=== PATIENT | female | born 2000 | race Caucasian/White ===

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

== ENCOUNTER 2022-06-04 21:14 | Outpatient (CLI) | payer OTHER, SELFPAY ==
[~2022-06-04] VITALS: Ht 160 cm; Wt 106.9 kg
[~2022-06-04 21:14] MED LIST: PRENTAB53 PO
[2022-06-04 22:04] VITALS: BP 134/65
[2022-06-04 22:28] VITALS: BP 142/81
== END 2022-06-04 22:32 | disposition home or self-care (01) ==
LOC: M LDO 21:14
PROVIDERS: ATTEND Obstetrics & Gynecology
DX: O36.8130 Decreased fetal movements, third trimester, not applicable or unspecified (principal); Z3A.39 39 weeks gestation of pregnancy; O24.430 Gestational diabetes mellitus in the puerperium, diet controlled
CPT/HCPCS: 59025; 76815; G0463

== ENCOUNTER 2022-06-13 03:29 | Inpatient (IN) | payer OTHER ==
[~2022-06-13] VITALS: Ht 160 cm; Wt 107.1 kg
[2022-06-13] VITALS (30 sets, daily range): BP systolic 120–202; BP diastolic 56–98
[2022-06-13] MEDS ORDERED: LR 1,000 ML IV ONE (04:05)
[2022-06-13 04:32] LABS: HEMATOCRIT 32.4 % (36.0-47.0); HEMOGLOBIN 10.6 g/dl (12.0-15.5); MEAN CORPUSCULAR HEMOGLOBIN 26.9 pg (27.0-33.0); MEAN CORPUSCULAR HGB CONC 32.7 g/dl (32.0-36.5); MEAN CORPUSCULAR VOLUME 82.2 fl (80.0-96.0); PLATELET COUNT, AUTOMATED 281 10^3/uL (150-450); RED BLOOD COUNT 3.94 10^6/uL (4.00-5.40); WHITE BLOOD COUNT 12.6 10^3/uL (4.0-10.0)
[2022-06-13] MEDS ORDERED: LR 500 ML IV PRN (05:10)
[2022-06-13] MEDS ORDERED: FENTANYL/ROPIVACAINE/NACL BAG 100 ML EPIDURAL SCH (05:10)
[2022-06-13] MEDS ORDERED: NALOXONE INJ 0.4MG/1ML VIAL (J2310 PER 1MG) IV PRN (05:10)
[2022-06-13] MEDS ORDERED: EPIDURAL/PCA KEYS XX PRN (05:10)
[2022-06-13] MEDS ORDERED: ONDANSETRON 4MG 2ML VIAL IV PRN (05:10)
[2022-06-13] MEDS ORDERED: ePHEDrine SULFATE 25 MG/5 ML(5MG/ML) SYRINGE IVP PRN (05:10)
[2022-06-13] MEDS ORDERED: diphenhydrAMINE 50MG/ML VIAL (J1200) IV PRN (05:10)
[2022-06-13] MEDS ORDERED: FENTANYL 2MCG/ML ROPIVACAINE 0.2% IN 0.9% NACL 100ML IVBAG As Ordered ONE (05:12)
[2022-06-13] MEDS ORDERED: REFLB XX ONE (05:12)
[2022-06-13] MEDS ORDERED: LR 1,000 ML IV SCH (05:55)
[2022-06-13] MEDS ORDERED: METHYLERGONOVINE MALEATE 0.2 MG/ML VIAL (J2210) IM PRN (06:15)
[2022-06-13] MEDS ORDERED: OXYTOCIN INJ 10 UNITS/ML VIAL (J2590) IM PRN (06:15)
[2022-06-13] MEDS ORDERED: OXYTOCIN DRIP 30 UNITS in IV 1 EA IV PRN ×6 (06:15)
[2022-06-13] MEDS ORDERED: LIDOCAINE 1% MDV 20ML VIAL INFIL PRN (06:15)
[2022-06-13] MEDS ORDERED: TRANEXAMIC ACID INJection 1,000 MG in NS 100 ML IV PRN (06:15)
[2022-06-13] MEDS ORDERED: CARBOPROST TROMETHAMINE 250 MCG/ML AMP IM PRN (06:15)
[2022-06-13] MEDS ORDERED: OXYTOCIN INJ 10 UNITS/ML VIAL (J2590) IV PRN (06:15)
[2022-06-13] MEDS ORDERED: OXYTOCIN 30 UNITS IN 0.9% NaCl 500ML IV BAG (J2590) As Ordered ONE ×2 (06:16→07:56)
[2022-06-13] MEDS ORDERED: DIBUCAINE 1% OINTMENT 30GM TOP PRN (07:30)
[2022-06-13] MEDS ORDERED: ACETAMINOPHEN 500 MG TAB PO PRN (07:30)
[2022-06-13] MEDS ORDERED: DOCUSATE SODIUM 100MG CAPSULE PO PRN (07:30)
[2022-06-13] MEDS ORDERED: ANUSOL HC CREAM 30GM TOP PRN (07:30)
[2022-06-13] MEDS ORDERED: RHOGAM 300 MCG (1500 IU) INJ (J2790) IM SCH (07:30)
[2022-06-13] MEDS ORDERED: OXYTOCIN DRIP 30 UNITS in IV 1 EA IV SCH (08:05)
[2022-06-13] MEDS: PRENATAL VITAMINS CHEWABLE TABLET PO SCH (09:00)
[2022-06-13] MEDS: IBUPROFEN 800 MG TAB PO PRN (20:54)
[2022-06-14 06:10] VITALS: BP 125/68
[2022-06-14] MEDS: IBUPROFEN 800 MG TAB PO PRN (06:24)
[2022-06-14] MEDS: PRENATAL VITAMINS CHEWABLE TABLET PO SCH (09:00)
[2022-06-14] MEDS ORDERED: COLA100C5 PO (09:22)
[2022-06-14] MEDS ORDERED: PRENCHW PO (09:22)
[2022-06-14] MEDS ORDERED: IBUP80TA PO (09:22)
[2022-06-15] MEDS ORDERED: MEASLES,MUMPS,RUBELLA VACCINE INJ (MMR-II) (90707) SC.IMMUN ONE (09:00)
== END 2022-06-14 11:30 | disposition home or self-care (01) | DRG 807 ==
LOC: M LDO 03:29 → M LDI 04:09 → M OBS 09:40
PROVIDERS: ADMIT Obstetrics & Gynecology; ATTEND Obstetrics & Gynecology
PROC: 10E0XZZ Delivery of Products of Conception, External Approach (ICD-10-PCS; principal; 2022-06-13)
PROC: 0KQM0ZZ Repair Perineum Muscle, Open Approach (ICD-10-PCS; 2022-06-13)
DX: O69.81X0 Labor and delivery complicated by cord around neck, without compression, not applicable or unspecified (principal); Z37.0 Single live birth; O24.420 Gestational diabetes mellitus in childbirth, diet controlled; Z3A.40 40 weeks gestation of pregnancy; O70.1 Second degree perineal laceration during delivery